=== PATIENT | female | born 1980 | race Caucasian/White ===

== ENCOUNTER 2020-07-17 08:52 | Day surgery (SDC) | payer OTHER ==
[2020-07-13 11:55] VITALS: BMI 25.0
[~2020-07-17 08:52] MED LIST: LIDOCAINE 1% (10MG/ML) FOR IV START INTRADERMA PRN
[2020-07-17 09:19] VITALS: RESP 16; TEMP 97.3
[2020-07-17] MEDS: LACTATED RINGERS 1,000 ML IV SCH ×2 (09:31→09:55)
[2020-07-17] MEDS ORDERED: PROPOFOL 10 MG/ML 20 ML VIAL IV ONE (09:55)
[2020-07-17] MEDS ORDERED: fentaNYL (PF) 50 MCG/ML 2 ML AMP ONE (09:55)
[2020-07-17] MEDS ORDERED: LIDOCAINE 1% INJ 10MG/ML (20 ML MDV) ONE (09:55)
--- NOTE | 2020-07-17 10:52 | P.PCN ---
Date of Procedure: 07/17/20 Description of Procedure: Brief history: Patient is a pleasant 39-year-old female presenting for outpatient EGD and colonoscopy for evaluation of anemia and altered bowel function/change in bowel habits. Patient reports a history of anemia, currently following up with hematology service she has received iron infusions. She reports constipation treated with magnesium. Procedure performed: Esophagogastroduodenoscopy with biopsy Colonoscopy with biopsy Estimated blood loss: Minimal. Preoperative diagnosis: Anesthesia: MAC Procedure: After informed consent was obtained from the patient was brought into the endoscopy unit and IV sedation was administered by anesthesia under continuous monitoring. Initially upper endoscopy was done. The Olympus GF 190 video endoscope was inserted into the mouth and esophagus intubated without any difficulty and was gradually advanced into the stomach and duodenum and carefully examined. The bulb and second part of the duodenum appeared normal, with biopsies taken to rule out celiac sprue. The scope was then withdrawn into the stomach adequately insufflated with air and upon careful examination the antrum and body, cardia and fundus appeared normal, except for some mild scattered erythema suggestive of mild gastritis with biopsies of the antrum and body taken. The scope was then withdrawn into the esophagus. The GE junction was located at 36 cm to the incisors and biopsied. It appeared regular with no erythema erosions or ulcerations. Rest of the esophagus appeared normal. Patient tolerated the procedure well. At this time the patient continued to remain sedation. Initial digital rectal examination was normal. Olympus CF 190 video colonoscope was then inserted into the rectum and gradually advanced to the cecum with some technical difficulty due to a somewhat redundant and fixed colon likely secondary to multiple prior intra-abdominal surgeries. Careful examination was performed as the scope was gradually being withdrawn. The prep was excellent. The cecum, ascending colon, transverse colon, descending colon, sigmoid colon and rectum appeared normal, with biopsies taken of the right colon, left colon and a normal-appearing terminal ileum in the setting of altered bowel function. Retroflexion was performed in the rectum and no lesions were noted, low-grade internal hemorrhoids noted. Patient tolerated the procedure well. Impression: 1. Mild gastritis. Biopsies of the duodenum, antrum and body and GE junction. 2. Somewhat redundant and fixed colon, otherwise normal appearing from rectum to cecum with normal-appearing terminal ileum. Random biopsies taken of the terminal ileum, right colon and left colon. Recommendations: Findings of this examination were discussed with the patient as well as her mother. Okay to resume diet. Okay to resume medications. Continue follow-up with the hematology service. Await pathology from biopsies.
[2020-07-17 11:19] VITALS: BP 113/78; PULSE 70
== END 2020-07-17 12:17 | disposition home or self-care (01) ==
LOC: ORWHC2ENDO 08:52
PROVIDERS: ATTEND Internal Medicine
DX: K64.8 Other hemorrhoids (principal); Q43.8 Other specified congenital malformations of intestine; R19.4 Change in bowel habit; K29.80 Duodenitis without bleeding; K31.89 Other diseases of stomach and duodenum; K29.50 Unspecified chronic gastritis without bleeding; K21.00 Gastro-esophageal reflux disease with esophagitis, without bleeding; D64.9 Anemia, unspecified; E07.9 Disorder of thyroid, unspecified; F32.9 Major depressive disorder, single episode, unspecified; Z79.1 Long term (current) use of non-steroidal anti-inflammatories (NSAID); Z79.899 Other long term (current) drug therapy; Z90.89 Acquired absence of other organs; Z90.49 Acquired absence of other specified parts of digestive tract; Z98.890 Other specified postprocedural states; Z79.891 Long term (current) use of opiate analgesic
CPT/HCPCS: 81025; 88305; 45380; 43239; J2001; J3010; J2704